=== PATIENT | female | born 1985 | race Two or more races ===

== ENCOUNTER 2016-09-13 22:38 | Emergency (ER) | payer OTHER ==
[~2016-09-13 22:38] MED LIST: ALBUTEROL 0.5ML; ALBUTEROL MININEB NEB; ALBUTEROL17 GM; ALBUTEROL17 GM INH; AZO; BENZONATATE PO; BIRTH CONTROL PILL; BIRTH CONTROL PILL PO; CERTAGEN PO; CIPRO PO; CLARITIN10 MG; CLARITIN10 MG PO; COMBIVENT INH14.7 GM INH; DIFLUCAN PO; DOXYCYCLINE PO; EPIPEN0.3 MG/0.1; EPIPEN0.3 MG/0.3 INJ; FLAGYL PO; GABAPENTIN400 MG PO; MEDROL PO; PHENERGAN PO; PHENERGAN25 M1 PO; PRILOSEC; REQUIP1 MG PO; TESSALON200 MG PO; TORADOL10 MG PO; VICODIN PO; WALGREENS PHARMACY; ZANTAC PO; ZITHROMAX PO
== END 2016-09-14 00:10 | disposition home or self-care (01) ==
LOC: CED 22:38
DX: H66.92 Otitis media, unspecified, left ear (principal); R42 Dizziness and giddiness; J45.909 Unspecified asthma, uncomplicated; F17.210 Nicotine dependence, cigarettes, uncomplicated; Z91.040 Latex allergy status; Z88.1 Allergy status to other antibiotic agents
CPT/HCPCS: 99283